=== PATIENT | female | born 1970 | race Caucasian/White ===

== ENCOUNTER 2016-06-12 05:46 | Day surgery (SDC) | payer OTHER ==
[2016-06-12] VITALS (10 sets, daily range): BP systolic 100–119; BP diastolic 46–78; PULSE 58–64; RESP 16–18; Ht 154.9 cm; Wt 69.5 kg
[~2016-06-12] VITALS: Ht 154.9 cm; Wt 69.5 kg
[~2016-06-12 05:46] MED LIST: DICLOFENAC 0.1% 2.5 ML OPH OPER SCH; LIDOCAINE 3.5% GEL TUBE OPER ONE; MOXIFLOXACIN 0.5% 3 ML OPH OPER SCH; PREDNISOLONE ACET 1% 5 ML OPH LEFT EYE SCH; TETRACAINE 0.5% 4 ML OPH OPER SCH
[2016-06-12] MEDS ORDERED: TOBRAMYCIN/DEXAMETH 3.5 GM OPH OINT ONE (06:42)
[2016-06-12] MEDS ORDERED: LIDOCAINE 2%/EPI 30 ML INJ ONE (06:42)
[2016-06-12] MEDS ORDERED: PREDNISOLONE ACET 1% 5 ML OPH LEFT EYE ONE (07:00)
[2016-06-12] MEDS ORDERED: BALANCED SALT SOLN 15 ML OPH IRRIG ONE (07:00)
--- NOTE | 2016-06-12 07:05 | HPN ---
Date/Time of Note Date/Time of Note DATE: 06/12/16 TIME: 07:05 Interval H&P Admission Note Pt. seen H&P reviewed: No system changes MARY ALICE VASQUEZ D.O. Jun 12, 2016 07:05
[2016-06-12] MEDS ORDERED: LIDOCAINE 2%/EPI (MDV) 20ML INJ INJ ONE (07:10)
[2016-06-12] MEDS ORDERED: MIDAZOLAM 1 MG/ML 2 ML INJ ONE (07:39)
[2016-06-12] MEDS ORDERED: PROPOFOL 20 ML ONE (07:39)
[2016-06-12] MEDS ORDERED: FENTAnyl 50 MCG/ML VIAL ONE (07:41)
[2016-06-12] MEDS ORDERED: DICL2.5D11 LEFT EYE (08:10)
[2016-06-12] MEDS ORDERED: ATOR10TA65 PO (08:10)
[2016-06-12] MEDS ORDERED: OFLO5DRO46 LEFT EYE (08:10)
[2016-06-12] MEDS ORDERED: TOBRAMYCIN/DEXAMETH 3.5 GM OPH OINT LEFT EYE ONE (08:27)
[2016-06-12] MEDS ORDERED: DIPHENHYDRAMINE 50 MG INJ IV PRN (08:30)
[2016-06-12] MEDS ORDERED: morphine (1 MG/ML) 10ML SYRINGE IV PRN (08:30)
[2016-06-12] MEDS ORDERED: MIDAZOLAM 1 MG/ML 2 ML INJ IV PRN (08:30)
[2016-06-12] MEDS ORDERED: ONDANSETRON 4 MG INJ IV PRN (08:30)
--- NOTE | 2016-06-12 11:06 | OPR ---
DATE OF OPERATION: 06/12/2016 ANESTHESIOLOGIST: Dr. Beaver SURGEON: Mary Alice Allan DO PREOPERATIVE DIAGNOSIS: Progressive peripheral pterygium, left eye. POSTOPERATIVE DIAGNOSIS: Progressive peripheral pterygium, left eye. PROCEDURE PLANNED: 1. Ocular reconstruction with creation of transplant, Lt eye. 2. Removal of pterygium, Lt eye. OPERATION PERFORMED: 1. Operative reconstruction with creation transplant, Lt eye. 2. Removal of pterygium, Lt. eye. INFORMED CONSENT: The patient was given detailed explanation about possible outcome of surgery and possible complications which include but not limited to infection, bleeding, scar formation, recurrence of about 30%, some muscle imbalance, decrease of vision and decrease of movement of the eye, loss of vision, loss of the eye as an organ. The whole conversation was done in [place] and the patient understood. All questions were answered and consent can be found in the chart. DESCRIPTION OF PROCEDURE: The patient was brought to the operative room in stable condition and placed on operating table in supine position. The left eye was prepped for pterygium surgery routine in sterile technique. A lid retractor was placed into the left eye and subconjunctival injection of lidocaine and epinephrine preservative-free was done. Transplants were created from superior and inferior bulbar conjunctiva.Sudhir scissors used to separate conjunctiva from the sclera. Then, handpiece cautery used to demarcate body and tail of the pterygium and Sudhir scissors used to separate body and tail of pterygium from the sclera. A [place] knife was used to remove head of the pterygium from the cornea. Remaining neovascular tissue was removed with the [place] and a david bur used to [place] the cornea. Hemostasis was achieved with hand piece cautery. Eventually, 2 pieces of autografts placed over the bare sclera. An 8-0 Vicryl stitch was used to get to attach the autografts to each other and adjacent conjunctivae. Eventually, a few drops of Betadine and Tobradex ointment was instilled into Lt conjunctival sac and eyelid patch was placed over closed eyelid. Dictated By: MARY ALICE KRUGER/AYDE Conf#: [id number] DID#: [id number] [facility]
== END 2016-06-12 10:11 | disposition home or self-care (01) ==
LOC: SDS 05:46
PROVIDERS: ATTEND Ophthalmology
DX: H11.052 Peripheral pterygium, progressive, left eye (principal); E78.5 Hyperlipidemia, unspecified; E66.9 Obesity, unspecified; Z68.29 Body mass index [BMI] 29.0-29.9, adult; F41.9 Anxiety disorder, unspecified; I12.9 Hypertensive chronic kidney disease with stage 1 through stage 4 chronic kidney disease, or unspecified chronic kidney disease; N18.1 Chronic kidney disease, stage 1; E11.22 Type 2 diabetes mellitus with diabetic chronic kidney disease; E11.21 Type 2 diabetes mellitus with diabetic nephropathy; G82.20 Paraplegia, unspecified
CPT/HCPCS: 65426; 84703; J2250; J2270; J3010; Z7512; Z7610